=== PATIENT | female | born 1945 | race Hispanic/Latino ===

== ENCOUNTER 2017-12-04 12:19 | Outpatient (CLI) | payer MEDICARE, BC ==
[~2017-12-04 12:19] MED LIST: Iopamidol 370 76% 100 ML VIAL ONE
[2017-12-04 13:03] LABS: Estimated GFR-MDRD - POC Greater than 90
== END 2017-12-04 12:20 | disposition home or self-care (01) ==
LOC: BICCT 12:19
PROVIDERS: ATTEND Internal Medicine Cardiovascular Disease
DX: D49.6 Neoplasm of unspecified behavior of brain (principal); R06.02 Shortness of breath; R55 Syncope and collapse; I65.29 Occlusion and stenosis of unspecified carotid artery
CPT/HCPCS: 70470; 82565

== ENCOUNTER 2018-06-15 14:36 | Outpatient (CLI) | payer MEDICARE, BC ==
[2018-06-15 16:03] LABS: #Basophils 0.1 thou/uL (0.0-0.2); #Eosinphils 0.2 thou/uL (0.0-0.7); #Lymphocytes 2.6 thou/uL (1.20-3.40); #Monocytes 0.8 thou/uL (0.11-0.59); #Neutrophils 4.5 thou/uL (1.40-6.50); %Basophils 0.7 % (0.0-1.0); %Eosinophils 2.3 % (0.0-10.0); %Lymphocytes 31.5 % (21.0-51.0); %Monocytes 9.9 % (0.0-10.0); %Neutrophils 55.6 % (42.0-75.0); Hemoglobin 10.8 g/dL (12.0-16.0); Mean Corpuscular HGB CONC 32.8 g/dL (32.0-36.0); Mean Corpuscular Volume 91.5 fL (78.0-98.0); Mean Platelet Volume 7.1 fL (7.4-10.4); Platelet Count 267 thou/uL (130-400); Red Blood Cell (RBC) Count 3.61 mill/uL (4.20-5.40); White Blood Cell (WBC) Count 8.2 thou/uL (4.8-10.8)
[2018-06-15 16:19] LABS: PTT 28.4 SEC (22.9-36.1); Prothrombin Time 13.6 SEC (12.0-14.7)
[2018-06-15 16:27] LABS: ALT (SGPT) 15 U/L (8-55); AST (SGOT) 17 U/L (5-34); Albumin 4.1 g/dL (3.4-4.8); Alkaline Phosphatase 132 U/L (40-150); Anion Gap 13 mmol/L (10-20); BUN (Urea Nitrogen) 18 mg/dL (9.8-20.1); Bilirubin, Total 0.3 mg/dL (0.2-1.2); Calc. Creatinine Clearance 0 mL/min (70-130); Calcium 9.8 mg/dL (7.8-10.44); Carbon Dioxide 27 mmol/L (23-31); Chloride 102 mmol/L (98-107); Estimated GFR-MDRD 77; Globulin 2.8 g/dL (2.4-3.5); Glucose 265 mg/dL (83-110); Potassium 4.6 mmol/L (3.5-5.1); Protein, Total 6.9 g/dL (6.0-8.3); Sodium 137 mmol/L (136-145)
== END 2018-06-15 14:37 | disposition home or self-care (01) ==
LOC: LABBT 14:36
PROVIDERS: ATTEND Internal Medicine Cardiovascular Disease
DX: Z01.812 Encounter for preprocedural laboratory examination (principal); R94.39 Abnormal result of other cardiovascular function study
CPT/HCPCS: 80053; 85025; 85610; 85730

== ENCOUNTER 2018-06-21 06:41 | Day surgery (SDC) | payer MEDICARE, BC ==
[2018-06-15 15:13] VITALS: BMI 30.2
[2018-06-21 09:36] LABS: Cardiac Risk 3.2 (Less than 4.5)
[2018-06-21] MEDS ORDERED: Midazolam HCl 2 mg/2 ml Vial ONE (10:23)
[2018-06-21] MEDS ORDERED: Fentanyl 100 MCG/2 ML VIAL ONE (10:23)
--- NOTE | 2018-06-21 16:42 | CON ---
DATE OF CONSULTATION: 06/21/2018 REASON FOR CONSULTATION: Evaluate the patient for coronary artery bypass grafting. HISTORY OF PRESENT ILLNESS: Ms. Lopez is a very pleasant 73-year-old woman, who approximately 9 months ago had positive stress test performed. This was performed for progressive chest pain and shortness of breath. She was advised at that time to have cardiac catheterization. She refused and has been having progressive chest pain at home. She was seen in the [facility] Emergency Department, had an echocardiogram performed, which was "normal" and told she needed to have a cardiac catheterization. At that juncture, she called Dr. Faust, to schedule her cardiac catheterization. Catheterization shows severely calcified coronary arteries throughout. She has subtotal LAD stenosis. She has a subtotal diagonal #2 stenosis. She has a 99% OM stenosis. Her right coronary does not have significant bypassable disease. Ejection fraction is 40%. I have been asked to see her to discuss coronary artery bypass grafting. PAST MEDICAL HISTORY: 1. Hypertension. 2. Dyslipidemia. 3. Tobacco abuse - stopped. 4. Diabetes mellitus. PAST SURGICAL HISTORY: 1. Hysterectomy. 2. Cataract extraction. 3. Cholecystectomy. ALLERGIES: NONE. SOCIAL HISTORY: As above. PHYSICAL EXAMINATION: GENERAL: This is a well-developed, well-nourished woman, resting comfortably in the recovery area. VITAL SIGNS: Her heart rate is 67 and regular, blood pressure 130/50. HEENT: Sclerae nonicteric. Pupils are equal and round bilaterally. NECK: Supple without bruit. CHEST: Clear bilaterally. HEART: Rhythm is regular. ABDOMEN: Soft and nontender. EXTREMITIES: No cyanosis, clubbing, or edema. She has no venous varicosities. VASCULAR: She has palpable carotid, radial, femoral pulses bilaterally. Dorsalis pedis and posterior tibial pulses are palpable bilaterally. ASSESSMENT AND PLAN: This is a pleasant 73-year-old woman with severe 3-vessel coronary artery disease, bypassable targets included LAD, D2, and OM. Risks, benefits, and options of coronary artery bypass graft had been discussed with the patient and family. 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 She is agreeable to proceed and will call the office to schedule. Job ID: [id number]
== END 2018-06-21 14:20 | disposition home or self-care (01) ==
LOC: CCL 06:41
PROVIDERS: ATTEND Internal Medicine Cardiovascular Disease
PROC: B211YZZ Fluoroscopy of Multiple Coronary Arteries using Other Contrast (ICD-10-PCS; principal; 2018-06-21)
DX: Z01.810 Encounter for preprocedural cardiovascular examination (principal); I25.10 Atherosclerotic heart disease of native coronary artery without angina pectoris; I10 Essential (primary) hypertension; Z87.891 Personal history of nicotine dependence; E11.9 Type 2 diabetes mellitus without complications; Z90.49 Acquired absence of other specified parts of digestive tract; Z90.710 Acquired absence of both cervix and uterus; E78.00 Pure hypercholesterolemia, unspecified; Z79.899 Other long term (current) drug therapy; Z79.84 Long term (current) use of oral hypoglycemic drugs; Z79.82 Long term (current) use of aspirin
CPT/HCPCS: 36415; 80061; 93458; 93567; 99152; 99153; C1769; J1644; J2250; J3010

== ENCOUNTER 2018-07-03 06:48 | Outpatient (CLI) | payer MEDICARE, BC ==
[2018-07-03 14:58] LABS: Mean Corpuscular HGB CONC 32.7 g/dL (32.0-36.0); Mean Corpuscular Volume 91.9 fL (78.0-98.0); Mean Platelet Volume 7.2 fL (7.4-10.4); Platelet Count 252 thou/uL (130-400); RBC Distribution Width 12.8 % (11.5-14.5); Red Blood Cell (RBC) Count 3.67 mill/uL (4.20-5.40); White Blood Cell (WBC) Count 8.2 thou/uL (4.8-10.8)
[2018-07-03 15:12] LABS: Anion Gap 13 mmol/L (10-20); BUN (Urea Nitrogen) 12 mg/dL (9.8-20.1); Calc. Creatinine Clearance 0 mL/min (70-130); Calcium 9.8 mg/dL (7.8-10.44); Carbon Dioxide 29 mmol/L (23-31); Chloride 101 mmol/L (98-107); Estimated GFR-MDRD 89; Glucose 275 mg/dL (83-110); Potassium 4.1 mmol/L (3.5-5.1); Sodium 139 mmol/L (136-145)
--- NOTE | 2018-07-03 16:23 | EKG ---
Test Reason : Blood Pressure : / mmHG Vent. Rate : 061 BPM Atrial Rate : 061 BPM P-R Int : 154 ms QRS Dur : 156 ms QT Int : 436 ms P-R-T Axes : 009 -50 065 degrees QTc Int : 438 ms Normal sinus rhythm Left axis deviation Right bundle branch block Left ventricular hypertrophy with QRS widening and repolarization abnormality Abnormal ECG When compared with ECG of 20-SEP-2012 21:39, No significant change was found Confirmed by DR. Vik PERAZA ([id number]) on 07/03/2018 4:22:45 PM Referred By: SIMI Confirmed By:DR. Vik PERAZA
--- NOTE | 2018-07-11 04:29 | DIS ---
DATE OF ADMISSION: 07/03/2018 DATE OF DISCHARGE: 07/03/2018 DIAGNOSES: 1. Coronary artery disease. 2. Diabetes mellitus. 3. Hypertension. 4. Dyslipidemia. PROCEDURES: 1. Coronary artery bypass grafting x3. a. Left internal mammary artery to LAD. b. Reverse saphenous vein to diagonal. c. Reverse saphenous vein to OM. DISCHARGE MEDICATIONS: 1. Aspirin 325 mg daily. 2. Atenolol 25 mg daily. 3. Lisinopril 20 mg daily. 4. Atorvastatin 20 mg at bedtime. 5. Gabapentin 100 mg t.i.d. 6. Glipizide/metformin 5/50 two tablets b.i.d. 7. Lasix 20 mg daily. DESCRIPTION OF HOSPITAL STAY: Ms. Lopez underwent an elective coronary artery bypass grafting. She has done well postoperatively. She is being discharged home today without complication. She had no rhythm disturbances in hospital. Followup is with me in 2 weeks. Job ID: [id number]
== END 2018-07-03 06:49 | disposition home or self-care (01) ==
LOC: LABBT 06:48
PROVIDERS: ATTEND Thoracic Surgery (Cardiothoracic Vascular Surgery)
DX: Z01.818 Encounter for other preprocedural examination (principal)
CPT/HCPCS: 80048; 85027; 86850; 86900; 86901; 93005; 93010

== ENCOUNTER 2018-07-03 13:00 | Inpatient (IN) | payer MEDICARE, BC ==
[2018-07-04] MEDS ORDERED: CEFAZOLIN 2 GM/50 ML BAG ONE (06:21)
[2018-07-04] MEDS ORDERED: Albumin 5% 500 ML ONE (06:27)
[2018-07-04] MEDS ORDERED: Dexmedetomidine 200 MCG/2 ML VIAL ONE (06:41)
[2018-07-04] MEDS ORDERED: Midazolam HCl 5 mg/5 ml Vial ONE (06:41)
[2018-07-04] MEDS ORDERED: Vecuronium 10 MG VIAL ONE ×2 (06:41→15:08)
[2018-07-04] MEDS ORDERED: Fentanyl 250 MCG/5 ML VIAL ONE (06:41)
[2018-07-04] MEDS ORDERED: Phenylephrine HCL 10 MG/ML VIAL ONE (07:00)
[2018-07-04] MEDS ORDERED: Norepinephrine 4 MG/4 ML VIAL ONE (07:00)
[2018-07-04] MEDS ORDERED: Heparin 10,000 UNITS/1 ML VIAL 30,000 UNITS in Sodium Chloride 0.9% 1,000 ML FS SCH (07:00)
[2018-07-04] MEDS ORDERED: Sodium Chloride 0.9% 10 ML ONE (07:02)
[2018-07-04] MEDS ORDERED: Insulin Regular 300 UNITS/3 ML VIAL ONE (08:14)
[2018-07-04] MEDS ORDERED: Dexamethasone 4 mg/ml Vial ONE (08:55)
[2018-07-04] MEDS ORDERED: Bupivacaine HCl 0.5%/Epinephrine 1:200,000/PF 30 ml Vial ONE (08:55)
[2018-07-04] MEDS ORDERED: hydrALAZINE 20 MG/ML VIAL SLOW IVP PRN (11:06)
[2018-07-04] MEDS ORDERED: Post-Op Insulin Drip Protocol IVPB ONE (11:06)
[2018-07-04] MEDS ORDERED: MAGNESIUM IVPB SCH (11:06)
[2018-07-04] MEDS ORDERED: NS IVPB SCH (11:06)
[2018-07-04] MEDS ORDERED: Acetaminophen 325 MG TAB PO PRN (11:06)
[2018-07-04] MEDS ORDERED: Bisacodyl 5 MG TAB PO PRN (11:06)
[2018-07-04] MEDS ORDERED: Morphine 4 MG/ML VIAL SLOW IVP PRN (11:06)
[2018-07-04] MEDS ORDERED: D5 1/2 NS w/20 mEq KCL 1,000 ML IV SCH (11:06)
[2018-07-04] MEDS ORDERED: Nitroglycerin 50 MG/250 ML BOT 250 ML IVPB PRN (11:06)
[2018-07-04] MEDS ORDERED: Fentanyl 100 MCG/2 ML VIAL SLOW IVP PRN ×2 (11:06)
[2018-07-04] MEDS ORDERED: Promethazine HCl 25 MG/ML VIAL IM PRN (11:06)
[2018-07-04] MEDS ORDERED: Hetastarch 6% 500 ML 500 ML IVPB PRN (11:06)
[2018-07-04] MEDS ORDERED: Guaifenesin DM 100-10/5 ML UDCUP PO PRN (11:06)
[2018-07-04] MEDS ORDERED: Bisacodyl 10 MG SUPP PR PRN (11:06)
[2018-07-04] MEDS ORDERED: Norepinephrine 8 MG/0.9% NS 250 ML IVPB PRN (11:06)
[2018-07-04] MEDS ORDERED: Mag-Al 1200 mg/1200 mg/30 ML UDCUP PO PRN (11:06)
[2018-07-04] MEDS ORDERED: Ondansetron PF 4 MG/2 ML Vial IVP PRN (11:06)
[2018-07-04] MEDS ORDERED: CEFAZOLIN/Water 2 GM/20 ML SYRINGE SLOW IVP SCH (11:06)
[2018-07-04] MEDS ORDERED: Dextrose 50% Abboject 50 ML SYRINGE SLOW IVP PRN (11:47)
[2018-07-04] MEDS ORDERED: Dextrose 5% in Water 1,000 ML IV PRN (11:47)
[2018-07-04] MEDS ORDERED: HUMULIN R 100 UNITS in Sodium Chloride 0.9% 100 ML IVPB SCH (11:47)
[2018-07-04 11:50] LABS: Actual Bicarbonate (HCO3a) 23.2 mEq/L (22-28); CO2 Tension 32.3 mmHg (35.0-45.0); Calcium, Ionized 1.22 mmol/L (1.12-1.30); O2 Tension (PaO2) 86.2 mmHg (> 70.0); Potassium - ABG Lab 3.84 mmol/L (3.70-5.30); pH, Arterial 7.48 (7.35-7.45)
[2018-07-04 11:51] LABS: ALV-art Gradient 229.925 (0-20); Puncture Site ALINE
[2018-07-04 11:53] LABS: INR-International Normal Ratio 1.2; Prothrombin Time 15.5 SEC (12.0-14.7)
[2018-07-04 11:54] LABS: #Eosinphils 0.1 thou/uL (0.0-0.7); #Lymphocytes 2.3 thou/uL (1.20-3.40); #Monocytes 0.8 thou/uL (0.11-0.59); #Neutrophils 8.2 thou/uL (1.40-6.50); %Basophils 0.1 % (0.0-1.0); %Lymphocytes 20.1 % (21.0-51.0); %Monocytes 6.6 % (0.0-10.0); %Neutrophils 72.2 % (42.0-75.0); Hemoglobin 8.7 g/dL (12.0-16.0); Mean Corpuscular HGB CONC 33.4 g/dL (32.0-36.0); Mean Corpuscular Hemoglobin 30.5 pg (27.0-31.0); Mean Corpuscular Volume 91.3 fL (78.0-98.0); Mean Platelet Volume 7.3 fL (7.4-10.4); PTT 43.5 SEC (22.9-36.1); Platelet Count 176 thou/uL (130-400); RBC Distribution Width 12.4 % (11.5-14.5); Red Blood Cell (RBC) Count 2.83 mill/uL (4.20-5.40); White Blood Cell (WBC) Count 11.4 thou/uL (4.8-10.8)
[2018-07-04] MEDS: Ketorolac Tromethamine 30 MG/ML VIAL IVP SCH ×3 (12:04→23:10)
[2018-07-04 12:05] LABS: Anion Gap 11 mmol/L (10-20); BUN (Urea Nitrogen) 11 mg/dL (9.8-20.1); Calc. Creatinine Clearance 100 mL/min (70-130); Calcium 9.1 mg/dL (7.8-10.44); Carbon Dioxide 22 mmol/L (23-31); Chloride 111 mmol/L (98-107); Estimated GFR-MDRD Greater than 90; Glucose 190 mg/dL (83-110); Sodium 140 mmol/L (136-145)
[2018-07-04] MEDS: Potassium Chloride 20 MEQ/100 ML PREMIX BAG IVPB PRN (12:40)
[2018-07-04] MEDS: CEFAZOLIN 2 GM/50 ML-DEXTROSE 2 GM in Premix Bag 1 BAG IVPB SCH ×2 (13:17→21:17)
--- NOTE | 2018-07-04 13:39 | RAD ---
SINGLE VIEW OF THE CHEST: Date: 07-04-18 Comparison: 09-20-12 History: Status post open heart surgery. FINDINGS: Single view of the chest shows an enlarged cardiomediastinal silhouette. The patient is status post s ternotomy. There is an endotracheal tube with its tip at the lower border of the clavicles. A right s ubclavian central venous catheter is seen with its tip at the superior vena cava. Mediastinal drains are seen. There is no evidence of consolidation, mass, or pleural effusion. IMPRESSION: Appropriate position of lines and tubes status post sternotomy. POS: NATASHA
[2018-07-04] MEDS ORDERED: Protamine Sulfate 250 MG/25 ML VIAL ONE (15:08)
[2018-07-04] MEDS ORDERED: Papaverine 60 MG/2 ML VIAL ONE (15:08)
[2018-07-04] MEDS ORDERED: Mannitol 12.5 GM/50 ML ONE (15:08)
[2018-07-04] MEDS ORDERED: Thrombin 5000 UNITS/5 ML VIAL ONE (15:08)
[2018-07-04] MEDS ORDERED: Aminocaproic Acid 5 GM/20 ML VIAL ONE (15:08)
[2018-07-04] MEDS ORDERED: Nitroglycerin 50 MG/250 ML BOT ONE (15:08)
[2018-07-04] MEDS ORDERED: Dexamethasone 20 MG/5 ML VIAL ONE (15:08)
[2018-07-04] MEDS ORDERED: Ketorolac Tromethamine 30 MG/ML VIAL ONE (15:08)
[2018-07-04] MEDS ORDERED: PROPOFOL 200 MG/20 ML VIAL ONE (15:08)
[2018-07-04] MEDS ORDERED: Albumin 25% 25 GM/100 ML BOT ONE (15:08)
[2018-07-04] MEDS ORDERED: Ondansetron PF 4 MG/2 ML Vial ONE (15:08)
[2018-07-04] MEDS ORDERED: Cardioplegic Soln 1,000 ML BAG ONE (15:08)
[2018-07-04] MEDS ORDERED: Lidocaine 2% PF 100 mg/5 ml Syringe ONE (15:08)
[2018-07-04] MEDS ORDERED: Magnesium 5 GM/10 ML VIAL ONE (15:08)
[2018-07-04] MEDS ORDERED: Sodium Bicarb 50 MEQ/50 ML Abboject 8.4% SYRINGE ONE (15:08)
[2018-07-04] MEDS ORDERED: Heparin 5,000 UNITS/ML VIAL ONE (15:08)
[2018-07-04] MEDS ORDERED: Heparin 30,000 units/30 ml VIAL ONE (15:08)
[2018-07-04] MEDS ORDERED: Potassium Chloride 60 MEQ/30 ML VIAL ONE (15:08)
[2018-07-04] MEDS ORDERED: Calcium Chloride 1 GM/10 ML Abboject SYRINGE ONE (15:08)
--- NOTE | 2018-07-04 15:08 | CON ---
DATE OF CONSULTATION: 07/04/2018 PRIMARY HAMMERER HELPER: Aleksandar Faust MD REASON FOR CONSULTATION: Post CABG. HISTORY OF PRESENT ILLNESS: Ms. Lopez is a pleasant 73-year-old female, who comes to the hospital for a planned coronary bypass. She has had several attempts at heart catheterization and she would cancel. She was concerned afraid about the procedure, finally ended up having her heart catheterization on the 21 of June that showed severely calcified coronary arteries with subtotal LAD and diagonal and OMs. The right coronary was without significant disease. Her EF was 40% at that time. She had coronary artery bypass grafting done earlier today and did pretty well. She is currently intubated under sedation. Sedation has been off, but she is still not waking up. Currently, her blood pressure is maintaining without any pressor or inotrope support. PAST MEDICAL HISTORY: 1. Hypertension. 2. Hyperlipidemia. 3. Type 2 diabetes. 4. History of tobacco abuse, none for some time now. SURGICAL HISTORY: 1. Hysterectomy. 2. Cataract surgery. 3. Cholecystectomy. 4. CABG. OUTPATIENT MEDICATIONS: Include, 1. Atenolol 25 mg a day. 2. Lisinopril 10 mg a day. 3. Gabapentin 100 mg three times a day. 4. Amlodipine 10 mg a day. 5. Glipizide 5 mg a day. 6. Metformin 500 mg twice a day. 7. Atorvastatin 20 mg at bedtime. 8. Aspirin 81 a day. ALLERGIES: NO KNOWN DRUG ALLERGIES. FAMILY HISTORY: Noncontributory. SOCIAL HISTORY: Former tobacco user. No alcohol or drugs. REVIEW OF SYSTEMS: Unobtainable as she currently sedated and intubated. PHYSICAL EXAMINATION: VITAL SIGNS: Temperature 97.2, pulse 50, respiratory rate 12, saturating 98% on 40% FiO2, and blood pressure 92/50. GENERAL: Sedated, intubated. LUNGS: Have coarse breath sounds. CARDIOVASCULAR: S1 and S2. No S3 or S4. There is a 3 component rub consistent with a recent bypass earlier today and chest tubes. ABDOMEN: Soft. EXTREMITIES: Trace edema in the left leg, which is her harvested leg. Nothing on the right leg. LABORATORY DATA: Laboratory work was reviewed. Postop EKGs were reviewed. ASSESSMENT AND PLAN: 1. Multivessel coronary artery disease, status post coronary artery bypass graft. 2. Hypertension. 3. Hyperlipidemia. 4. Type 2 diabetes. PLAN: 1. Continue supportive care for now. Continue to wean off the ventilator. May need pressors. 2. Continue to watch hemoglobin, she is at 8.7 now. 3. Will need aspirin and statin for life. 4. Eventually once blood pressure allows, we will need reinstitution of her ALEXEI inhibitor and beta blockers. Thank you for letting me to participate in the care of your patient. We will follow. Job ID: [id number]
[2018-07-04] MEDS ORDERED: CEFAZOLIN 2 GM/50 ML-DEXTROSE 2 GM in Premix Bag 1 BAG IVPB SCH (16:00)
--- NOTE | 2018-07-04 17:32 | OP ---
DATE OF PROCEDURE: 07/04/2018 PREOPERATIVE DIAGNOSES: Coronary artery disease/diabetes mellitus/hypertension/hyperlipidemia. POSTOPERATIVE DIAGNOSES: Coronary artery disease/diabetes mellitus/hypertension/hyperlipidemia. PROCEDURES PERFORMED: 1. Coronary artery bypass grafting x3 - one left internal mammary artery to 1.5 mm distal LAD - good conduit, heavily calcified target - this is not a redo target. 2. Reverse saphenous vein to 1.25 mm diagonal - good conduit, heavily calcified target - this is not a redo target. 3. Reverse saphenous vein to 1.25 mm OM - good conduit, heavily calcified target - this is not a redo target. Note, all of her coronaries were heavily calcified. The bypasses were performed to the only soft areas on her coronary arteries, and there was no further coronary bypassable target. CO-SURGEON: Dr. Tonny La. ANESTHESIA: General endotracheal - Dr. Cesar Franco. PUMP TIME: 59 minutes. CROSS-CLAMP TIME: 32 minutes. LOW CORE TEMPERATURE: 34 degrees Celsius. ART COORDINATOR: Kenneth Rojo. DRAINS: A 24-Serbian chest tubes x2. DRIPS: None. TRANSFUSIONS: None. DESCRIPTION OF PROCEDURE: After consent was obtained, the patient was brought to the operating room, placed in supine position on the operating room table. Appropriate central line was placed, and general endotracheal anesthesia was induced. Chest and legs were prepped and draped in usual sterile fashion. Greater saphenous vein was harvested utilizing endoscopic technique from the left thigh. Wounds were again closed in layers. Median sternotomy was performed. Left internal mammary artery was harvested as a pedicle graft. The patient was systemically heparinized. Distal pedicle was divided and infused with papaverine. Thymic fat and pericardium were divided with electrocautery. Pericardial stay sutures were placed. Aortic and atrial cannulation was performed. After adequate heparinization, retrograde prime was performed. The patient was placed on cardiopulmonary bypass. Aortic cross-clamp was applied, and antegrade sanguineous cardioplegic arrest was obtained. 1 L of antegrade cold cardioplegia was given. Topical cold solution was used. Reverse saphenous vein was anastomosed to diagonal in an end-to-side fashion with running 7-0 Prolene suture. Anastomosis was tested and it was hemostatic. Reverse saphenous vein was anastomosed to the OM in an end-to-side fashion with running 7-0 Prolene suture. Anastomosis was tested, and it was hemostatic. Mammary artery pericardium was anastomosed to the LAD in an end-to-side fashion with running 7-0 Prolene suture. Anastomosis was tested and it was hemostatic. On release, mammary claims good occluding anastomosis and good distal flow. Pedicle was secured with interrupted 6-0 Prolene suture. Cross-clamp was removed, and partial occluding clamp was placed. Saphenous vein to the OM was anastomosed to the aortic root. Partial occluding clamp was removed. Saphenous vein to the diagonal was anastomosed to the sidewall of the OM graft. The anastomoses were inspected for hemostasis, which was good. The patient was warmed and weaned from cardiopulmonary bypass. After resumption of sinus rhythm, good hemodynamics, temperature greater than 36.5, bypass was discontinued. Transfusions were given. Protamine was administered. Decannulation was performed, and purse-string suture was secured. Aortic cannulation site was reinforced with 4-0 Prolene suture. After adequate hemostasis had been obtained, vancomycin paste was placed on the sternal edges. A 24-Serbian chest tubes were placed in mediastinum. Sternum was closed with #5 wire. Sternum was treated with platelet rich plasma. Wires were twisted. Peristernal and pericostal areas were injected with 0.5% Marcaine with epinephrine, mixed with 5 mg of Decadron. Wounds were irrigated and treated with platelet poor plasma and closed in multiple layers. Dermabond was applied to the skin. The patient tolerated the procedure well, was transferred to the intensive care unit in stable, but critical condition. Needle, sponge, and instrument counts were all reported as correct at the end of the procedure. Job ID: [id number]
[2018-07-04 18:08] LABS: Hemoglobin 8.3 g/dL (12.0-16.0)
[2018-07-04 18:28] LABS: Potassium 4.2 mmol/L (3.5-5.1)
[2018-07-04] MEDS ORDERED: Famotidine/PF 20 mg/2ml Vial SLOW IVP SCH (21:00)
[2018-07-04] MEDS ORDERED: Prevnar 13-Val Conj/PF 0.5 ML SYRINGE IM ONE (21:00)
[2018-07-05 03:59] LABS: #Lymphocytes 1.4 thou/uL (1.20-3.40); #Monocytes 1.3 thou/uL (0.11-0.59); #Neutrophils 8.1 thou/uL (1.40-6.50); %Basophils 0.2 % (0.0-1.0); %Eosinophils 0.1 % (0.0-10.0); %Lymphocytes 13.2 % (21.0-51.0); %Monocytes 11.9 % (0.0-10.0); %Neutrophils 74.7 % (42.0-75.0); Hemoglobin 7.8 g/dL (12.0-16.0); Mean Corpuscular HGB CONC 32.8 g/dL (32.0-36.0); Mean Corpuscular Hemoglobin 30.1 pg (27.0-31.0); Mean Corpuscular Volume 91.8 fL (78.0-98.0); Mean Platelet Volume 7.5 fL (7.4-10.4); Platelet Count 166 thou/uL (130-400); RBC Distribution Width 12.9 % (11.5-14.5); Red Blood Cell (RBC) Count 2.57 mill/uL (4.20-5.40); White Blood Cell (WBC) Count 10.8 thou/uL (4.8-10.8)
[2018-07-05 04:09] LABS: Anion Gap 12 mmol/L (10-20); BUN (Urea Nitrogen) 19 mg/dL (9.8-20.1); Calc. Creatinine Clearance 90 mL/min (70-130); Calcium 9.1 mg/dL (7.8-10.44); Carbon Dioxide 22 mmol/L (23-31); Chloride 112 mmol/L (98-107); Estimated GFR-MDRD Greater than 90; Glucose 123 mg/dL (83-110); Potassium 4.1 mmol/L (3.5-5.1); Sodium 142 mmol/L (136-145)
[2018-07-05] MEDS: Ketorolac Tromethamine 30 MG/ML VIAL IVP SCH ×3 (05:16→17:45)
[2018-07-05] MEDS: CEFAZOLIN 2 GM/50 ML-DEXTROSE 2 GM in Premix Bag 1 BAG IVPB SCH (05:16)
[2018-07-05] MEDS: HYDROcodone/Acetaminophen 5/325 mg Tablet PO PRN ×2 (06:15→09:23)
[2018-07-05] MEDS: Aspirin 325 MG TAB PO SCH (08:00)
[2018-07-05] MEDS: Famotidine 20 MG TAB PO SCH ×2 (08:00→20:39)
[2018-07-05] MEDS: Gabapentin 100 MG CAP PO SCH ×3 (08:01→20:39)
--- NOTE | 2018-07-05 08:28 | RAD ---
SUPINE PORTABLE CHEST: INDICATION: Postop sternotomy. COMPARISON: 07/04/2018. FINDINGS: Left basilar atelectasis and/or infiltrate. Cardiomegaly. Mild vascular engorgement. Central line is unchanged. ET tube has been removed. POS: JOSE DANIEL
[2018-07-05] MEDS ORDERED: NS IVPB SCH (09:00)
[2018-07-05] MEDS ORDERED: MAGNESIUM IVPB SCH (09:00)
--- NOTE | 2018-07-05 11:35 | PDOC.CTH ---
Cardiology Progress Note - Subjective She is doing well. She is now extubated. - Objective Vital Signs Temp Pulse Ox 07/05/18 07:47 95 07/05/18 07:44 96 07/05/18 07:00 99.2 F 07/05/18 05:00 99.1 F 07/05/18 03:00 98.7 F 07/05/18 00:00 97 Admit Weight 2.564 oz Weight 155 lb 3.287 oz 07/04/18 07/05/18 07/06/18 06:59 06:59 06:59 Intake Total 1486 160 Output Total 935 300 Balance 551 -140 - Physical Examination General/Neuro: alert & oriented x3, NAD Neck: no JVD present Lungs: unlabored respirations Heart: RRR Abdomen: NT/ND Extremities: + edema B (Trace) - Telemetry Telemetry Rhythm: NSR - Labs Result Diagrams: 07/05/18 03:46 07/05/18 03:46 - Assessment/Plan 1. Severe multivessel CAD. 2. S/P CABG 3. HTN 4. HLP 5. T2 DM 6. Anemia PLAN: - PT as tolerated. - Will restart Statin, continue aspirin - BB and ACEI/ARB once BP allows.
[2018-07-05] MEDS: Insulin Regular 300 UNITS/3 ML VIAL SC PRN (16:35)
[2018-07-05] MEDS: Atorvastatin Calcium 20 MG TAB PO SCH (20:39)
[2018-07-06] MEDS: Ketorolac Tromethamine 30 MG/ML VIAL IVP SCH ×5 (00:18→23:17)
[2018-07-06] MEDS: Insulin Regular 300 UNITS/3 ML VIAL SC PRN ×4 (00:20→22:10)
[2018-07-06 05:30] LABS: #Eosinphils 0.1 thou/uL (0.0-0.7); #Lymphocytes 2.1 thou/uL (1.20-3.40); #Neutrophils 4.4 thou/uL (1.40-6.50); %Basophils 0.2 % (0.0-1.0); %Eosinophils 1.4 % (0.0-10.0); %Lymphocytes 27.3 % (21.0-51.0); %Monocytes 13.6 % (0.0-10.0); %Neutrophils 57.5 % (42.0-75.0); Hemoglobin 8.7 g/dL (12.0-16.0); Mean Corpuscular HGB CONC 32.9 g/dL (32.0-36.0); Mean Corpuscular Hemoglobin 30.4 pg (27.0-31.0); Mean Corpuscular Volume 92.2 fL (78.0-98.0); Mean Platelet Volume 7.3 fL (7.4-10.4); Platelet Count 149 thou/uL (130-400); RBC Distribution Width 13.1 % (11.5-14.5); Red Blood Cell (RBC) Count 2.86 mill/uL (4.20-5.40); White Blood Cell (WBC) Count 7.6 thou/uL (4.8-10.8)
[2018-07-06 06:05] LABS: Anion Gap 9 mmol/L (10-20); BUN (Urea Nitrogen) 18 mg/dL (9.8-20.1); Calc. Creatinine Clearance 98 mL/min (70-130); Carbon Dioxide 29 mmol/L (23-31); Chloride 109 mmol/L (98-107); Estimated GFR-MDRD Greater than 90; Glucose 115 mg/dL (83-110); Sodium 143 mmol/L (136-145)
[2018-07-06] MEDS: Potassium Chloride 20 MEQ/100 ML PREMIX BAG IVPB PRN (06:51)
[2018-07-06] MEDS ORDERED: Nitroglycerin 0.4 MG TAB (25 Tab Bottle) SL PRN (07:24)
[2018-07-06] MEDS ORDERED: Zolpidem Tartrate 5 MG TAB PO PRN (07:24)
[2018-07-06] MEDS ORDERED: diphenhydrAMINE 25 MG CAP PO PRN (07:24)
[2018-07-06] MEDS ORDERED: Mag-Al 1200 mg/1200 mg/30 ML UDCUP PO PRN (07:24)
[2018-07-06] MEDS ORDERED: Guaifenesin DM 100-10/5 ML UDCUP PO PRN (07:24)
[2018-07-06] MEDS ORDERED: Artificial Tears 18 DROP/0.9 ML EA EYE PRN (07:24)
[2018-07-06] MEDS ORDERED: Mineral Oil ENEMA PR PRN (07:24)
[2018-07-06] MEDS: HYDROcodone/Acetaminophen 5/325 mg Tablet PO PRN ×2 (07:35→22:05)
--- NOTE | 2018-07-06 08:22 | PDOC.CTH ---
Cardiology Progress Note - Subjective She is doing well. Passing gas. Pain well controlled. - Objective Vital Signs Temp Resp Pulse Ox 07/06/18 08:00 13 95 07/06/18 07:24 95 07/06/18 07:12 94 L 07/06/18 04:00 98.1 F 07/06/18 00:00 99.0 F Admit Weight 2.564 oz Weight 158 lb 1.143 oz 07/05/18 07/06/18 07/07/18 06:59 06:59 06:59 Intake Total 1486 1180 160 Output Total 935 1065 70 Balance 551 115 90 - Physical Examination General/Neuro: alert & oriented x3, NAD Neck: no JVD present Lungs: CTA, unlabored respirations Heart: RRR Abdomen: NT/ND Extremities: + edema B (trace) - Telemetry Telemetry Rhythm: NSR - Labs Result Diagrams: 07/06/18 05:22 07/06/18 05:22 - Assessment/Plan 1. Severe multivessel CAD. 2. S/P CABG 3. HTN 4. HLP 5. T2 DM 6. Anemia PLAN: - Increase PT as tolerated. - Continue aspirin/Statin. - BB on board. ACEI tomorrow if BP holds.
[2018-07-06] MEDS: Atenolol 25 MG TAB PO SCH (08:32)
[2018-07-06] MEDS: Potassium Chloride 10 MEQ TAB PO SCH (08:32)
[2018-07-06] MEDS: Famotidine 20 MG TAB PO SCH ×2 (08:32→21:59)
[2018-07-06] MEDS: Furosemide 20 MG TAB PO SCH (08:33)
[2018-07-06] MEDS: Aspirin 325 MG TAB PO SCH (08:33)
[2018-07-06] MEDS: Gabapentin 100 MG CAP PO SCH ×3 (08:33→22:00)
[2018-07-06] MEDS ORDERED: Atenolol 25 MG TAB PO SCH (09:00)
--- NOTE | 2018-07-06 09:31 | RAD ---
PORTABLE SEMI UPRIGHT FRONTAL CHEST RADIOGRAPH: Date: 07-06-18 Comparison: 07-05-18 History: Evaluate chest following open heart surgery. FINDINGS: Calcification of the aortic arch. There is a stable right sided vascular catheter. There is dense ple ural and parenchymal opacity in the left base suggesting a combination of left lower lobe consolidati on/collapse and left pleural fluid. Right lung is grossly unremarkable. IMPRESSION: Stable appearance of the chest as detailed above. POS: JOSE DANIEL
[2018-07-06] MEDS: Atorvastatin Calcium 20 MG TAB PO SCH (21:59)
[2018-07-07 04:38] VITALS: BMI 32.3
[2018-07-07] MEDS: Insulin Regular 300 UNITS/3 ML VIAL SC PRN ×4 (06:26→21:02)
[2018-07-07] MEDS: Ketorolac Tromethamine 30 MG/ML VIAL IVP SCH ×2 (06:28→11:04)
[2018-07-07] MEDS: Aspirin 325 MG TAB PO SCH (08:18)
[2018-07-07] MEDS: Gabapentin 100 MG CAP PO SCH ×3 (08:18→20:59)
[2018-07-07] MEDS: Furosemide 20 MG TAB PO SCH (08:18)
[2018-07-07] MEDS: Famotidine 20 MG TAB PO SCH ×2 (08:18→20:59)
[2018-07-07] MEDS: Atenolol 25 MG TAB PO SCH (08:18)
[2018-07-07] MEDS: Potassium Chloride 10 MEQ TAB PO SCH (08:18)
[2018-07-07] MEDS: Bisacodyl 5 MG TAB PO PRN (14:10)
[2018-07-07] MEDS: HYDROcodone/Acetaminophen 5/325 mg Tablet PO PRN (20:50)
[2018-07-07] MEDS: Atorvastatin Calcium 20 MG TAB PO SCH (20:59)
[2018-07-08] MEDS: HYDROcodone/Acetaminophen 5/325 mg Tablet PO PRN ×4 (01:11→21:13)
[2018-07-08] MEDS: Potassium Chloride 10 MEQ TAB PO SCH (09:10)
[2018-07-08] MEDS: metFORMIN 500 MG TAB PO SCH ×2 (09:10→17:12)
[2018-07-08] MEDS: Aspirin 325 MG TAB PO SCH (09:11)
[2018-07-08] MEDS: Famotidine 20 MG TAB PO SCH ×2 (09:11→21:07)
[2018-07-08] MEDS: Atenolol 25 MG TAB PO SCH (09:11)
[2018-07-08] MEDS: Bisacodyl 5 MG TAB PO PRN (09:12)
[2018-07-08] MEDS: Furosemide 20 MG TAB PO SCH (09:12)
[2018-07-08] MEDS: Bisacodyl 10 MG SUPP PR PRN (09:12)
[2018-07-08] MEDS: Gabapentin 100 MG CAP PO SCH ×3 (09:12→21:07)
[2018-07-08] MEDS: Insulin Regular 300 UNITS/3 ML VIAL SC PRN ×2 (13:07→17:08)
[2018-07-08] MEDS: Atorvastatin Calcium 20 MG TAB PO SCH (21:07)
[2018-07-09] MEDS: HYDROcodone/Acetaminophen 5/325 mg Tablet PO PRN ×6 (02:20→22:55)
[2018-07-09] MEDS: Potassium Chloride 10 MEQ TAB PO SCH (08:49)
[2018-07-09] MEDS: Aspirin 325 MG TAB PO SCH (08:50)
[2018-07-09] MEDS: Atenolol 25 MG TAB PO SCH (08:50)
[2018-07-09] MEDS: metFORMIN 500 MG TAB PO SCH ×2 (08:50→18:05)
[2018-07-09] MEDS: Famotidine 20 MG TAB PO SCH ×2 (08:50→20:59)
[2018-07-09] MEDS: glipiZIDE 5 MG TAB PO SCH ×2 (08:50→18:05)
[2018-07-09] MEDS: Furosemide 20 MG TAB PO SCH (08:51)
[2018-07-09] MEDS: Gabapentin 100 MG CAP PO SCH ×3 (08:51→20:59)
[2018-07-09] MEDS ORDERED: Amlodipine 10 MG TAB PO SCH (09:00)
[2018-07-09] MEDS: Insulin Regular 300 UNITS/3 ML VIAL SC PRN (12:23)
[2018-07-09 13:49] LABS: Actual Bicarbonate (HCO3a) 27.1 mEq/L (22-28); Analyzer IN Cardio OR; Base Excess (BEa) 4.1 mEq/L (-2.0 to +3.0); CO2 Tension 34.9 mmHg (35.0-45.0); Calcium, Ionized 1.12 mmol/L (1.12-1.30); Carboxyhemoglobin (COHb) 0.5 gm% (0.0-3.0); Hemoglobin (Hb) 10.6 g/dL (12.0-16.0); O2 Tension (PaO2) 398.1 mmHg (> 70.0); Potassium - ABG Lab 3.63 mmol/L (3.70-5.30); pH, Arterial 7.51 (7.35-7.45)
[2018-07-09 13:50] LABS: Actual Bicarbonate (HCO3a) 30.6 mEq/L (22-28); Analyzer IN Cardio OR; Base Excess (BEa) 3.7 mEq/L (-2.0 to +3.0); Calcium, Ionized 1.87 mmol/L (1.12-1.30); Carboxyhemoglobin (COHb) 0.8 gm% (0.0-3.0); Hemoglobin (Hb) 7.4 g/dL (12.0-16.0); O2 Tension (PaO2) 461.1 mmHg (> 70.0); Potassium - ABG Lab 4.56 mmol/L (3.70-5.30); pH, Arterial 7.31 (7.35-7.45)
[2018-07-09 13:50] LABS: Actual Bicarbonate (HCO3a) 32.1 mEq/L (22-28); Analyzer IN Cardio OR; Base Excess (BEa) 5.3 mEq/L (-2.0 to +3.0); Calcium, Ionized 1.06 mmol/L (1.12-1.30); Hemoglobin (Hb) 7.1 g/dL (12.0-16.0); Potassium - ABG Lab 4.04 mmol/L (3.70-5.30); pH, Arterial 7.32 (7.35-7.45)
[2018-07-09 13:50] LABS: Actual Bicarbonate (HCO3a) 25.6 mEq/L (22-28); Analyzer IN Cardio OR; Base Excess (BEa) 1.9 mEq/L (-2.0 to +3.0); CO2 Tension 36.3 mmHg (35.0-45.0); Calcium, Ionized 1.12 mmol/L (1.12-1.30); Carboxyhemoglobin (COHb) 0.4 gm% (0.0-3.0); Hemoglobin (Hb) 9.9 g/dL (12.0-16.0); O2 Tension (PaO2) 316.4 mmHg (> 70.0); Potassium - ABG Lab 3.74 mmol/L (3.70-5.30); pH, Arterial 7.47 (7.35-7.45)
[2018-07-09 13:51] LABS: Actual Bicarbonate (HCO3a) 28.9 mEq/L (22-28); Analyzer IN Cardio OR; Calcium, Ionized 1.45 mmol/L (1.12-1.30); Carboxyhemoglobin (COHb) 1.4 gm% (0.0-3.0); Hemoglobin (Hb) 6.4 g/dL (12.0-16.0); O2 Tension (PaO2) 272.7 mmHg (> 70.0); Potassium - ABG Lab 4.59 mmol/L (3.70-5.30); pH, Arterial 7.35 (7.35-7.45)
[2018-07-09 14:45] LABS: Puncture Site ALINE
[2018-07-09 14:46] LABS: Puncture Site ALINE
[2018-07-09 14:46] LABS: CO2 Tension 64.2 mmHg (35.0-45.0)
[2018-07-09 14:47] LABS: O2 Tension (PaO2) 590.7 mmHg (> 70.0); Puncture Site ALINE
[2018-07-09 14:48] LABS: Puncture Site ALINE
[2018-07-09 14:48] LABS: CO2 Tension 62.4 mmHg (35.0-45.0); Puncture Site ALINE
--- NOTE | 2018-07-09 17:47 | PDOC.CTH ---
Cardiology Progress Note - Subjective No new issues, she is walking with PT without issues. She had a BM yesterday after a suppository and again this morning. Difficult time with oxygen saturation accuracy. - Objective Vital Signs Temp Pulse Pulse Pulse Resp BP BP 07/09/18 16:00 97.2 F L 68 17 07/09/18 12:46 77 74 149/65 H 141/65 H 07/09/18 12:00 98.0 F 92 17 07/09/18 08:51 82 07/09/18 08:50 82 07/09/18 08:00 07/09/18 07:59 98.2 F 82 18 BP Pulse Ox Pulse Ox 07/09/18 16:00 120/58 L 98 07/09/18 12:46 92 L 07/09/18 12:00 124/62 95 07/09/18 08:51 07/09/18 08:50 07/09/18 08:00 94 L 07/09/18 07:59 121/57 L 94 L Admit Weight 2.564 oz Weight 141 lb 6 oz 07/08/18 07/09/18 07/10/18 06:59 06:59 06:59 Intake Total 1710 1567 Output Total 2650 880 Balance -940 687 - Physical Examination General/Neuro: alert & oriented x3, NAD Neck: no JVD present Lungs: CTA, unlabored respirations Heart: RRR Abdomen: NT/ND Extremities: + edema B (trace) - Telemetry Telemetry Rhythm: NSR - Labs Result Diagrams: 07/06/18 05:22 07/06/18 05:22 - Assessment/Plan 1. Severe multivessel CAD. 2. S/P CABG 3. HTN 4. HLP 5. T2 DM 6. Anemia PLAN: - Increase PT as tolerated. - Continue aspirin/Statin. - Continue BB - Will stop amlodipine and start lisinopril at 5 mg daily. - Will get ABG to make sure gas exchange is adequate. - Likely small amount of fluid on left base with atelectasy.
[2018-07-09 18:37] LABS: Actual Bicarbonate (HCO3a) 33.1 mEq/L (22-28); CO2 Tension 55.1 mmHg (35.0-45.0); Calcium, Ionized 1.17 mmol/L (1.12-1.30); Carboxyhemoglobin (COHb) 1.2 gm% (0.0-3.0); Hemoglobin (Hb) 10.2 g/dL (12.0-16.0); Potassium - ABG Lab 4.16 mmol/L (3.70-5.30)
[2018-07-09 18:38] LABS: O2 Tension (PaO2) 48.5 mmHg (> 70.0)
[2018-07-09 18:39] LABS: ALV-art Gradient 32.355 (0-20); Puncture Site LBA
[2018-07-09] MEDS: Atorvastatin Calcium 20 MG TAB PO SCH (20:59)
[2018-07-10] MEDS: glipiZIDE 5 MG TAB PO SCH ×2 (07:37→15:39)
[2018-07-10] MEDS: HYDROcodone/Acetaminophen 5/325 mg Tablet PO PRN ×4 (07:38→22:49)
[2018-07-10] MEDS: Potassium Chloride 10 MEQ TAB PO SCH (09:23)
[2018-07-10] MEDS: Famotidine 20 MG TAB PO SCH ×2 (09:24→22:45)
[2018-07-10] MEDS: metFORMIN 500 MG TAB PO SCH ×2 (09:24→17:08)
[2018-07-10] MEDS: Gabapentin 100 MG CAP PO SCH ×3 (09:24→22:45)
[2018-07-10] MEDS: Lisinopril 10 MG TAB PO SCH (09:24)
[2018-07-10] MEDS: Atenolol 25 MG TAB PO SCH (09:24)
[2018-07-10] MEDS: Furosemide 20 MG TAB PO SCH (09:25)
[2018-07-10] MEDS: Aspirin 325 MG TAB PO SCH (09:25)
[2018-07-10] MEDS: Bisacodyl 5 MG TAB PO PRN (09:29)
[2018-07-10] MEDS ORDERED: Furosemide 40 MG/4 ML VIAL SLOW IVP SCH (12:00)
[2018-07-10] MEDS: Insulin Regular 300 UNITS/3 ML VIAL SC PRN (12:20)
--- NOTE | 2018-07-10 14:53 | PDOC.CTH ---
Cardiology Progress Note - Subjective Doing better today after IV lasix given earlier today. Her O2 sats are up to 94 % at rest. - Objective Vital Signs Temp Pulse Resp BP BP Pulse Ox 07/10/18 12:00 98.4 F 78 17 128/60 89 L 07/10/18 09:24 87 161/76 H 07/10/18 07:43 96 07/10/18 07:40 98.6 F 87 16 153/69 H 96 07/10/18 04:00 98.0 F 76 18 124/59 L 94 L Admit Weight 2.564 oz Weight 143 lb 1 oz 07/09/18 07/10/18 07/11/18 06:59 06:59 06:59 Intake Total 1567 1470 1000 Output Total 967 432 5221 Balance 687 670 -1200 - Physical Examination General/Neuro: alert & oriented x3, NAD Neck: no JVD present Lungs: unlabored respirations Heart: RRR Abdomen: NT/ND Extremities: other: (no edema.) - Telemetry Telemetry Rhythm: NSR - Labs Result Diagrams: 07/06/18 05:22 07/06/18 05:22 - Assessment/Plan 1. Severe multivessel CAD. 2. S/P CABG 3. HTN 4. HLP 5. T2 DM 6. Anemia PLAN: - Increase PT as tolerated. - Continue aspirin/Statin. - Continue BB - Continue ACEI. - Hypoxia improved after one dose IV lasix. - She feels well and better than yesterday. - October discharge. - Will increase her PO lasix to 40 mg daily. - Follow up in the office in 1 month.
[2018-07-10] MEDS: Atorvastatin Calcium 20 MG TAB PO SCH (22:45)
[2018-07-10] MEDS: Bisacodyl 10 MG SUPP PR PRN (22:50)
[2018-07-11] MEDS ORDERED: Furosemide 40 MG/4 ML VIAL SLOW IVP SCH (09:00)
[2018-07-11] MEDS ORDERED: Furosemide 40 MG TAB PO SCH (09:00)
[2018-07-11] MEDS: glipiZIDE 5 MG TAB PO SCH ×2 (09:33→17:31)
[2018-07-11] MEDS: Aspirin 325 MG TAB PO SCH (09:35)
[2018-07-11] MEDS: Potassium Chloride 10 MEQ TAB PO SCH (09:35)
[2018-07-11] MEDS: metFORMIN 500 MG TAB PO SCH ×2 (09:35→17:31)
[2018-07-11] MEDS: Atenolol 25 MG TAB PO SCH (09:35)
[2018-07-11] MEDS: Gabapentin 100 MG CAP PO SCH ×2 (09:35→17:31)
[2018-07-11] MEDS: Lisinopril 10 MG TAB PO SCH (09:36)
[2018-07-11] MEDS: Famotidine 20 MG TAB PO SCH (09:36)
[2018-07-11] MEDS: HYDROcodone/Acetaminophen 5/325 mg Tablet PO PRN (09:39)
--- NOTE | 2018-07-11 12:31 | PDOC.CTH ---
Cardiology Progress Note - Subjective Doing well. No new issues. - Objective Vital Signs Temp Pulse Resp BP BP BP Pulse Ox 07/11/18 09:36 161/76 H 07/11/18 09:35 70 07/11/18 08:00 98.1 F 70 18 161/67 H 100 07/11/18 04:00 98.0 F 68 18 113/55 L 96 Admit Weight 2.564 oz Weight 143 lb 1 oz 07/10/18 07/11/18 07/12/18 06:59 06:59 06:59 Intake Total 1470 1800 Output Total 800 3600 Balance 670 -1800 - Physical Examination General/Neuro: alert & oriented x3, NAD Neck: no JVD present Lungs: CTA, unlabored respirations Heart: RRR Abdomen: NT/ND Extremities: + edema B (Trace) - Telemetry Telemetry Rhythm: NSR - Labs Result Diagrams: 07/06/18 05:22 07/06/18 05:22 - Assessment/Plan 1. Severe multivessel CAD. 2. S/P CABG 3. HTN 4. HLP 5. T2 DM 6. Anemia PLAN: - Continue aspirin/Statin. - Continue BB ACEI. - Hypoxia improved but still requiring home O2 to maintain sats. - October discharge. - Follow up in the office in 1 month. - Rx for Lasix 40 mg PO daily sent to [facility] on [address].
[2018-07-11 12:46] VITALS: TEMP 97.9
[2018-07-11 15:43] VITALS: BP 151/69
--- NOTE | 2018-07-23 12:59 | DIS ---
DATE OF ADMISSION: 07/04/2018 DATE OF DISCHARGE: 07/11/2018 DIAGNOSES: 1. Coronary artery disease. 2. Dyslipidemia. 3. Hypertension. 4. Diabetes mellitus. 5. History of tobacco abuse. PROCEDURES: Elective coronary artery bypass grafting x3, 1. Left internal mammary artery to LAD. 2. Saphenous vein to diagonal. 3. Saphenous vein to OM. DESCRIPTION OF HOSPITAL STAY: Ms. Lopez was brought in for elective coronary artery bypass grafting. Postoperatively, she did well. She had no rhythm disturbances. At the time of discharge, she was ambulatory, tolerating a regular diet, having good bowel and bladder function. Incisions were clean and dry without evidence of infection. DISCHARGE MEDICATIONS: Include, 1. Aspirin 325 mg daily. 2. Eliquis 5 mg b.i.d. 3. Lisinopril 20 mg b.i.d. 4. Atenolol 25 mg daily. 5. Atorvastatin 20 mg at bedtime. 6. Gabapentin 100 mg t.i.d. 7. Glipizide/metformin 2 b.i.d. 8. [place] 5/325 one to two q.6 hours p.r.n. pain. FOLLOWUP: Follow up is with me in [address] Faust in a month. Job ID: [id number]
== END 2018-07-11 17:52 | disposition home or self-care (01) | DRG 236 ==
LOC: SURG A 07-04 06:04 → CCU 07-04 11:21 → 2NO 07-07 18:29
PROVIDERS: ADMIT Thoracic Surgery (Cardiothoracic Vascular Surgery); ATTEND Thoracic Surgery (Cardiothoracic Vascular Surgery)
PROC: 02100Z9 Bypass Coronary Artery, One Artery from Left Internal Mammary, Open Approach (ICD-10-PCS; principal; 2018-07-04)
PROC: 021109W Bypass Coronary Artery, Two Arteries from Aorta with Autologous Venous Tissue, Open Approach (ICD-10-PCS; 2018-07-04)
PROC: 06BQ4ZZ Excision of Left Saphenous Vein, Percutaneous Endoscopic Approach (ICD-10-PCS; 2018-07-04)
PROC: 5A1221Z Performance of Cardiac Output, Continuous (ICD-10-PCS; 2018-07-04)
PROC: 30233N1 Transfusion of Nonautologous Red Blood Cells into Peripheral Vein, Percutaneous Approach (ICD-10-PCS; 2018-07-05)
DX: I25.10 Atherosclerotic heart disease of native coronary artery without angina pectoris (principal); I10 Essential (primary) hypertension; E78.2 Mixed hyperlipidemia; E11.9 Type 2 diabetes mellitus without complications; D64.9 Anemia, unspecified; Z87.891 Personal history of nicotine dependence; Z79.84 Long term (current) use of oral hypoglycemic drugs; Z79.82 Long term (current) use of aspirin; Z79.899 Other long term (current) drug therapy
CPT/HCPCS: 36415; 36416; 36430; 71045; 80048; 82805; 82947; 85025; 85027; 85610; 85730; 86850; 86900; 86901; 93005; 93010; 93798; 94002; 94150; J0360; J0670; J1100; J1642; J1644; J1815; J1885; J1940; J2001; J2150; J2250; J2270; J2370; J2405; J2440; J2704; J2720; J3010; J3370; J3475; J3480; J7050; P9016; P9045; P9047; S0017; S0028

== ENCOUNTER 2018-07-15 00:37 | Inpatient (IN) | payer MEDICARE, BC ==
[2018-07-15 01:23] LABS: #Basophils 0.1 thou/uL (0.0-0.2); #Eosinphils 0.6 thou/uL (0.0-0.7); #Lymphocytes 2.7 thou/uL (1.20-3.40); #Neutrophils 4.8 thou/uL (1.40-6.50); %Basophils 0.6 % (0.0-1.0); %Eosinophils 6.4 % (0.0-10.0); %Lymphocytes 29.6 % (21.0-51.0); %Monocytes 10.8 % (0.0-10.0); %Neutrophils 52.7 % (42.0-75.0); Hemoglobin 9.5 g/dL (12.0-16.0); Mean Corpuscular HGB CONC 32.2 g/dL (32.0-36.0); Mean Corpuscular Hemoglobin 29.6 pg (27.0-31.0); Mean Corpuscular Volume 91.9 fL (78.0-98.0); Mean Platelet Volume 6.5 fL (7.4-10.4); Platelet Count 358 thou/uL (130-400); RBC Distribution Width 13.8 % (11.5-14.5); Red Blood Cell (RBC) Count 3.22 mill/uL (4.20-5.40); White Blood Cell (WBC) Count 9.1 thou/uL (4.8-10.8)
[2018-07-15 01:42] LABS: ALT (SGPT) 25 U/L (8-55); AST (SGOT) 19 U/L (5-34); Albumin 3.8 g/dL (3.4-4.8); Alkaline Phosphatase 135 U/L (40-150); Anion Gap 18 mmol/L (10-20); BUN (Urea Nitrogen) 21 mg/dL (9.8-20.1); Bilirubin, Total 0.7 mg/dL (0.2-1.2); CK (CPK) 72 U/L (29-168); Calc. Creatinine Clearance 0 mL/min (70-130); Carbon Dioxide 31 mmol/L (23-31); Chloride 96 mmol/L (98-107); Estimated GFR-MDRD 75; Glucose 70 mg/dL (83-110); Potassium 3.6 mmol/L (3.5-5.1); Protein, Total 6.8 g/dL (6.0-8.3); Sodium 141 mmol/L (136-145)
[2018-07-15 02:09] LABS: CKMB 1.8 ng/mL (0-6.6)
[2018-07-15] MEDS ORDERED: Ondansetron ODT 4 MG TAB PO PRN (04:13)
[2018-07-15] MEDS ORDERED: Acetaminophen 325 MG TAB PO PRN (04:13)
[2018-07-15] MEDS ORDERED: HYDROcodone/Acetaminophen 5/325 mg Tablet PO PRN ×2 (04:16)
[2018-07-15 04:19] LABS: Critical Call Chem Troponin I RESULT DECREASING; Troponin I 0.419 ng/mL (< 0.028)
[2018-07-15 04:51] VITALS: BMI 31.4
[2018-07-15] MEDS ORDERED: HumaLOG 300 UNITS/3 ML VIAL SC PRN ×2 (07:56)
[2018-07-15] MEDS ORDERED: Dextrose 50% Abboject 50 ML SYRINGE SLOW IVP PRN (07:56)
[2018-07-15] MEDS ORDERED: Dextrose 5% in Water 1,000 ML IV PRN (07:56)
[2018-07-15 08:10] LABS: Critical Call Chem Troponin I RESULT DECREASING; Troponin I 0.385 ng/mL (< 0.028)
[2018-07-15] MEDS: Aspirin 325 MG TAB PO SCH (08:43)
[2018-07-15] MEDS: Lisinopril 20 MG TAB PO SCH (08:44)
[2018-07-15] MEDS: Gabapentin 100 MG CAP PO SCH ×3 (08:44→20:43)
[2018-07-15] MEDS: Atenolol 25 MG TAB PO SCH (08:44)
[2018-07-15] MEDS: Furosemide 40 MG/4 ML VIAL SLOW IVP SCH (08:44)
[2018-07-15] MEDS: Enoxaparin Sodium 80 MG/0.8 ML SYRINGE SC SCH ×2 (08:45→20:39)
--- NOTE | 2018-07-15 08:48 | CT ---
PRELIMINARY REPORT/[facility]/EMERGENTY AFTER-HOURS PROCEDURE CT Angiography Chest With Contrast EXAM DATE/TIME: 07/15/2018 1:51 AM CLINICAL HISTORY: 73 years old, female; Signs and symptoms; Shortness of breath; Prior surgery; Surgery date: 3-7 days post-operative; Patient HX: 73/f who presents to the ed with C/O shortness of breath that started sumi palma. 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 PT recently discharged from hospital on 07/11/18 after 3 vessel cabg on 07/04/18. Roder reports that PT was in the hospital for a week secondary to dyspnea and hypoxia on exertion. Finally on the she was better. PT family reported approx. 12 lb weight gain over two days andfwere told by patient tube mounter, dr. Faust, that she should increase lasix to 80 MG for 2 days. PT took that yesterday and family reports that swelling has decreased markedly. TECHNIQUE: Axial computed tomographic angiography images of the chest with intravenous contrast using CT angiogr aphy protocol. MIP reconstructed images were created and reviewed. COMPARISON: No relevant prior studies available. FINDINGS: Pulmonary arteries: No pulmonary emboli. Aorta: Atherosclerotic disease of the thoracic aorta without aneurysm or dissection. Lungs: Mild bibasilar atelectasis and/or scarring. Pleural space: Normal. No pneumothorax. No pleural effusion. Heart: Changes of prior sternotomy and CABG. Mild four-chamber cardiac enlargement. Mediastinum: Changes of tracheobronchomalacia. Adrenals: Mild bilateral adrenal hyperplasia. Kidneys and ureters: Nonobstructive left nephrolithiasis. Lymph nodes: Unremarkable. No enlarged lymph nodes. Bones/joints: Unremarkable. No acute fracture. Soft tissues: Unremarkable. Other findings: Bladder is surgically absent. IMPRESSION: No pulmonary emboli. Thank you for allowing us to participate in the care of your patient. Dictated and Authenticated by: Cedric Kauffman MD 07/15/2018 2:33 AM Central Time ([place] & [place]) FINAL REPORT EMERGENCY AFTER HOURS CT PULMONARY ANGIOGRAM WITH IV CONTRAST AND 3D MIP RECONSTRUCTIONS: Date: 07/15/18 PROVIDED CLINICAL HISTORY: Shortness of breath. FINDINGS: Filling defect is seen within right middle lobe branch of pulmonary arterial system compatible with p ulmonary embolus. No definite additional emboli are seen. Heart is enlarged. Vascular calcification w ith post CABG changes. There are bibasilar parenchymal opacities, greater at the left lung base. At t he left lung base, this could reflect subsegmental atelectasis and/or infiltrate. The airway appears patent and of normal caliber. There is a mild pericardial effusion. No evidence for pleural fluid or pneumothorax. The visualized portions of the upper abdomen appear unremarkable. The osseous structure s demonstrate no concerning lytic or blastic lesions. IMPRESSION: 1. Right middle lobe pulmonary embolus. 2. Left basilar parenchymal opacity may reflect volume loss and/or infiltrate. Consider follow-up. 3. Other findings as above. Findings communicated to the patient's nurse, Mary Lou, at 0758 hours on 07/15/18. This report is in disagreement with the preliminary interpretation given by Titi. POS: JOSE DANIEL
[2018-07-15] MEDS ORDERED: Enoxaparin Sodium 60 MG/0.6 ML SYRINGE SC SCH (09:00)
[2018-07-15] MEDS ORDERED: Furosemide 40 MG TAB PO SCH (09:00)
[2018-07-15] MEDS ORDERED: Enoxaparin Sodium 40 MG/0.4 ML SYRINGE SC SCH (09:00)
[2018-07-15] MEDS ORDERED: ISOVUE-370 76%-LOCM 1 ML ONE (10:16)
--- NOTE | 2018-07-15 11:47 | ULT ---
BILATERAL LOWER EXTREMITY VENOUS DUPLEX EXAM: Date: 07/15/18 HISTORY: Bilateral lower extremity pain and edema. FINDINGS: Real-time color Doppler evaluation of right and left lower extremity was performed from groin to calf . This includes evaluation of the common femoral, superficial and profunda femoral, saphenous, poplit eal, and posterior tibial veins. This shows patent deep venous systems bilaterally. There is normal c ompressibility and augmentation. There is no evidence of deep venous thrombosis. IMPRESSION: No evidence of deep venous thrombosis of either lower extremity. POS: JOSE DANIEL
--- NOTE | 2018-07-15 12:51 | PDOC.EVN ---
Event Note - Event Note Event Note: Pt seen and examined. Chart reviewed. car ediscussed w family at bedside. Feels better.walked a little bit has generalized bodyaches CTA results discussed w Radiologist-small PE. No DVT in Doppler legs will start lovenox BID for now and will request Pulmonary consult w regards to need for OAC for DC as pt is few days out of CABG Troponin high likely due to recent Sx cont diuresis. Cont cardioprudent meds.Reviewed. Awaiting cardiology recs
--- NOTE | 2018-07-15 13:27 | HP ---
PRIMARY CARE DOCTOR: Eugenio Acosta MD CODE STATUS: Full code. TIME OF EVALUATION: 4 a.m. CHIEF COMPLAINT: Shortness of breath. HISTORY OF PRESENT ILLNESS: This is a 73-year-old female patient with past medical history of coronary artery disease. The patient on the 9th of this month, had been discharged home, had been improving. Dr. Faust has been adjusting her medications as per family member report. The shortness of breath has started around 1 a.m. The patient was reported that it was worse with exertion. The symptoms were [id number] lasted until the patient got here to the hospital and received medical treatment. REVIEW OF SYSTEMS: CONSTITUTIONAL: No fever, chills, or generalized weakness. RESPIRATORY: No cough or sputum production. The patient reported shortness of breath. CARDIOVASCULAR: No chest pain or palpitation. GASTROINTESTINAL: No nausea. No vomiting, diarrhea, or abdominal pain. SHIP'S MASTER: No dizziness, headache, or feeling lightheaded. GENITOURINARY: No burning on urination. EXTREMITIES: No leg swelling. All other systems were reviewed and negative except for the findings mentioned above. PAST MEDICAL HISTORY: Positive for coronary artery disease, chronic angina, congestive heart failure, diabetes, hyperlipidemia, hypertension. PAST SURGICAL HISTORY: CABG on the of this month, cholecystectomy, hysterectomy. PSYCHIATRIC HISTORY: Anxiety. SOCIAL HISTORY: Former tobacco smoker and quit more than 10 years ago. No alcohol. No drugs. ALLERGIES: NO KNOWN DRUG ALLERGIES REPORTED. MEDICATIONS: 1. Lasix. 2. Gabapentin. 3. Lisinopril. 4. Atenolol. 5. Evans. 6. Glipizide. 7. Atorvastatin. PHYSICAL EXAMINATION: VITAL SIGNS: On presentation, heart rate 77, oxygen saturation 89 on room air, blood pressure 161/77 with heart rate 74, respiratory rate was 20, temperature 98, pain 0/10, oxygen saturation was 88 on room air. GENERAL APPEARANCE: The patient is alert, oriented, not in acute distress. HEENT: Eyes; normal conjunctivae. Moist oral mucosa. Anicteric. Bilateral JVD. RESPIRATORY: Bilateral air entry decreased. No rales. No wheezes. Symmetric expansion. CARDIOVASCULAR: Normal rate, regular rhythm. No murmurs. No gallops. No edema. ABDOMEN: Soft. Normal bowel sounds. MUSCULOSKELETAL: Baseline range of motion and strength. No tenderness. SKIN: Warm and intact. No pallor. No rash. No redness. Peripheral pulses are present. Capillary refill is easily intact. NEUROLOGIC: No evidence of any new focal weakness. Baseline speech. Cranial nerves seems to be intact. PSYCHIATRIC: The patient is in good mood. No anxiety. Oriented. Optimal judgement. DIAGNOSTIC STUDIES: EKG was reviewed. The patient has normal sinus rhythm with a rate of [address] of 154, QT corrected 510, left axis deviation, RBBB, and left ventricular hypertrophy with repolarization abnormalities. CT angio was done and showed no pulmonary embolism. No other significant cardiopulmonary abnormalities. Labs are reviewed. The patient has white count 9.1, hemoglobin 9.5, MCV 91.9, platelet count 358. Chemistry; sodium 141, potassium 3.6, chloride 96, carbon dioxide 31, anion gap of 18, BUN 21, creatinine 0.76, GFR 75, glucose 70. LFTs were negative. Troponin initial was 0.419, the previous one 0.452. Beta natriuretic peptide is 146. ASSESSMENT AND PLAN: The patient was placed in the hospital with the following medical problems; 1. Possible congestive heart failure exacerbation versus [id number] myocardial infarction, as noted the patient received surgery on July 04. Dr. Faust has been adjusting medications to the patient in the past week, we are consulted him for any further recommendation with the patient. 2. Epe-AW-[id number] myocardial infarction, unclear at this point type 1 versus type 2. The patient had recent surgery, troponin 0.4 x2. We will trend troponins. Observe in tele and will treat accordingly. 3. Normocytic anemia, hemoglobin is 9.5. In previous admission, it was in the 7 in October 2010. no need for any acute intervention. 4. Controlled diabetes, reconcile home medications, diabetic diet. 5. Hyperlipidemia, low-cholesterol diet is advised, reconcile home medications. 6. Deep venous thrombosis prophylaxis. Job ID: [id number]
--- NOTE | 2018-07-15 18:51 | CON ---
DATE OF CONSULTATION: 07/15/2018 HISTORY OF PRESENT ILLNESS: Ms. Lopez is a very pleasant 73-year-old female, who recently was discharged after coronary artery bypass grafting. She was sent home on the . She presented yesterday with complaints of cough and shortness of breath. A CT pulmonary angiogram in the emergency department showed a single pulmonary perfusion defect in the right middle lobe. No other defects were seen. Bilateral lower extremities were negative. She has a history according to the daughter of cardiomyopathy. She says she has been short of breath in the past and usually gets better with the Lasix. I contacted Cardiothoracic Surgery. They did not know she had been readmitted to the hospital. They will stop by tomorrow. Dr. Wright already made rounds today. There is no reason for him to come in. She does have an echocardiogram showing diastolic dysfunction. She says she feels back to her baseline at this point. She was started on lovenox yesterday. PAST MEDICAL HISTORY: Remarkable for no thromboembolic disease in the family and no history of pulmonary embolus or DVT in the past. She has a history of coronary artery disease, angina, diabetes, diastolic heart failure, lipid disorder, and hypertension. In addition to her bypass, she has had a cholecystectomy and hysterectomy in the past. SOCIAL HISTORY: She is a smoker. She quit 10 years ago. She does not drink. She does not use drugs. ALLERGIES: SHE HAS NO REPORTED ALLERGIES. FAMILY HISTORY: Negative for lung disease in early age. REVIEW OF SYSTEMS: Ten point review of systems completed, negative. PHYSICAL EXAMINATION: GENERAL: Ms. Lopez is a very pleasant 73-year-old female. VITAL SIGNS: She is afebrile. Heart rate 67, respiratory rate 16, oximetry 91 on room air, she is 100% on 2 L this morning. Blood pressure is 99/54. HEAD: Unremarkable. NECK: Unremarkable. LUNGS: Clear. Sternum is healing nicely. HEART: Regular rhythm. S1 and S2 are normal. ABDOMEN: Soft and nontender. EXTREMITIES: Without clubbing, cyanosis, or edema. LABORATORY DATA: White count 9.1, hemoglobin 9.5, platelets 358. BNP was 146. Electrolytes were essentially normal on admission. She had a BUN of 21. She did not have a chest x-ray in the emergency room, but had a CT pulmonary angiogram, which showed atelectasis of both lung bases off. The initial report was no pulmonary emboli. The review report by the second radiologist here showed a filling defect in the right middle lobe subsegmental branch. IMPRESSION: I suspect this is a false-positive thromboembolic finding on CT pulmonary angiogram. Solitary small defects are quite often false positives. She has no lower extremity evidence for deep venous thrombosis. I will switch to p.o. anticoagulantsand just anticoagulate her for 3 months after this. There is no really easy way to sort this out. We are really more or less forced to just anticoagulate her for 3 months. She does not appear to be a fall risk at this point, so she should do well with this. TIME SPENT: This is a 50-minute consult, with greater than 50% of the time was spent on the coordinating care. Job ID: [id number] [email or web address]
[2018-07-15] MEDS ORDERED: Atorvastatin Calcium 20 MG TAB PO SCH (21:00)
[2018-07-16 04:48] LABS: #Basophils 0.1 thou/uL (0.0-0.2); #Eosinphils 0.6 thou/uL (0.0-0.7); #Lymphocytes 2.1 thou/uL (1.20-3.40); #Monocytes 0.9 thou/uL (0.11-0.59); #Neutrophils 4.6 thou/uL (1.40-6.50); %Basophils 0.7 % (0.0-1.0); %Eosinophils 7.5 % (0.0-10.0); %Lymphocytes 25.2 % (21.0-51.0); %Monocytes 10.6 % (0.0-10.0); %Neutrophils 55.9 % (42.0-75.0); Hemoglobin 9.4 g/dL (12.0-16.0); Mean Corpuscular HGB CONC 32.5 g/dL (32.0-36.0); Mean Corpuscular Hemoglobin 30.7 pg (27.0-31.0); Mean Corpuscular Volume 94.7 fL (78.0-98.0); Mean Platelet Volume 6.2 fL (7.4-10.4); Platelet Count 333 thou/uL (130-400); RBC Distribution Width 13.7 % (11.5-14.5); Red Blood Cell (RBC) Count 3.06 mill/uL (4.20-5.40); White Blood Cell (WBC) Count 8.2 thou/uL (4.8-10.8)
[2018-07-16 05:08] LABS: Anion Gap 15 mmol/L (10-20); BUN (Urea Nitrogen) 16 mg/dL (9.8-20.1); Calc. Creatinine Clearance 81 mL/min (70-130); Calcium 9.9 mg/dL (7.8-10.44); Carbon Dioxide 33 mmol/L (23-31); Chloride 94 mmol/L (98-107); Estimated GFR-MDRD Greater than 90; Glucose 133 mg/dL (83-110); Potassium 3.3 mmol/L (3.5-5.1); Sodium 139 mmol/L (136-145)
[2018-07-16] MEDS ORDERED: Potassium Chloride 20 MEQ TAB PO SCH (07:45)
[2018-07-16] MEDS: Atenolol 25 MG TAB PO SCH (08:57)
[2018-07-16] MEDS: Gabapentin 100 MG CAP PO SCH ×2 (08:58→14:21)
[2018-07-16] MEDS: Lisinopril 20 MG TAB PO SCH (08:58)
[2018-07-16] MEDS: Aspirin 325 MG TAB PO SCH (09:00)
[2018-07-16] MEDS ORDERED: Apixaban 5 MG TAB PO SCH (09:00)
[2018-07-16] MEDS: Furosemide 40 MG/4 ML VIAL SLOW IVP SCH (09:08)
[2018-07-16 12:09] VITALS: BP 105/55; TEMP 98.1
--- NOTE | 2018-07-16 13:48 | PRG ---
DATE OF SERVICE: 07/16/2018 SUBJECTIVE: Ms. Lopez is stable overnight. She has no complaints. OBJECTIVE: VITAL SIGNS: She is afebrile. Heart rate 61, respiratory rate 20, oximetry is 95% on room air, and blood pressure 105/55. LUNGS: Clear. HEART: Regular rhythm. ABDOMEN: Soft. LABORATORY DATA: White count 8.2, hemoglobin 9.4, platelets 333. Sodium 139, potassium 3.3, chloride 94, bicarb 33, BUN 16, and creatinine 0.64. IMPRESSION: ? thromboembolic disease. I believe the CT finding is probably false-positive. PLAN: Plan to treat her with Eliquis for 3 months. She can be discharged in my opinion. I will see her in the office in a month and follow up. Job ID: [id number]
--- NOTE | 2018-07-16 20:36 | PDOC.CTH ---
Cardiology Progress Note - Subjective Doing better. Hypoxia improved. - Objective Vital Signs Temp Pulse Resp BP Pulse Ox 07/16/18 10:57 98.1 F 61 20 105/55 L 95 07/16/18 08:57 65 Weight 145 lb 07/15/18 07/16/18 07/17/18 06:59 06:59 06:59 Intake Total 1000 480 Output Total 600 1525 900 Balance -600 -525 -420 - Physical Examination General/Neuro: alert & oriented x3, NAD Neck: no JVD present Lungs: unlabored respirations Heart: RRR Abdomen: NT/ND Extremities: other: (no edema) - Telemetry Telemetry Rhythm: NSR - Labs Result Diagrams: 07/16/18 04:38 07/16/18 04:38 Troponin/CKMB CK-MB (CK-2) 1.8 ng/mL (0-6.6) 07/15/18 01:14 Troponin I 0.385 ng/mL (< 0.028) H* 07/15/18 07:17 - Assessment/Plan 1. Acute PE 2. Diastolic heart failure 3. S/P CABG PLAN: - Agree with 3 months of anticoagulation with Eliquis. - Continue Lasix as previously ordered as hypoxia only improved with removal of fluid. - May discharge home. - Follow up in 1 month.
--- NOTE | 2018-07-17 05:21 | DIS ---
DATE OF ADMISSION: 07/15/2018 DATE OF DISCHARGE: 07/16/2018 CONDITION: At the time of discharge, stable and improved. DISCHARGE DISPOSITION: Home. DISCHARGE DIAGNOSES: 1. Mild acute on chronic congestive heart failure. 2. Small right middle lobe pulmonary embolism. 3. History of coronary artery disease, status post coronary artery bypass graft on 07/04/2018. 4. Diabetes mellitus. 5. Dyslipidemia. 6. Hypertension. DISCHARGE MEDICATIONS: New medication: 1. Eliquis 5 mg p.o. b.i.d. Rest of the medications have remained unchanged. As follows: 1. Lisinopril 20 b.i.d. 2. Glipizide/metformin 2 tablets p.o. b.i.d. 3. Gabapentin 100 mg p.o. t.i.d. 4. Lasix 40 mg daily. 5. Atorvastatin 20 mg daily. 6. Atenolol 25 mg daily. 7. Aspirin 325 mg daily. IN-HOUSE CONSULTATIONS: 1. Cardiology, Aleksandar Faust MD. 2. Pulmonary Medicine, Manoj Zavala MD. PROCEDURES DONE IN THE HOSPITAL: 1. CT angio of the thorax, which showed right middle lobe small pulmonary embolism. 2. Transthoracic echocardiogram which shows ejection fraction of 50% to 55% with normal-sized atrium and left ventricle. Mild diastolic dysfunction. Otherwise, no significant valvular abnormality. 3. Lower extremity Doppler ultrasound bilaterally, which is negative for any deep venous thrombosis. HISTORY OF PRESENTING ILLNESS: Ms. Lopez is a 73-year-old female with recent coronary artery bypass graft on 07/04/2018, who presented to the emergency room with complaints of shortness of breath and leg swelling. Upon presentation, her oxygen saturation was 89% on room air. She was somewhat hypertensive with a blood pressure of 161/77. EKG showed a prolonged QT at 510 with right bundle branch block and left axis deviation. CT angio was done, which showed small pulmonary embolism. Her cardiac enzymes were checked and her troponin was 0.419 and 0.452. There was no baseline troponin drawn during her last hospitalization when she underwent CABG, so there was nothing to compare to. Her BNP was 146. No chest x-ray was done in the ER. HOSPITAL COURSE: Shortly after her admission, CT angio results came back positive for pulmonary embolism. She was started initially on therapeutic dose of Lovenox at 1 mg/kg and Pulmonary Medicine was consulted as PE was rather small and there was a question if she needs treatment or not. Lower extremity Doppler ultrasound was also ordered, which was negative. Cardiology was also consulted with question of mild fluid overload and she was diuresed with IV Lasix. Her Lovenox was changed to Eliquis. Dr. Zavala saw the patient in the hospital. Dr. Faust also saw the patient in the hospital for Cardiology team and he agreed with continuation of Eliquis. Lovenox was discontinued. The patient's Lasix was changed to oral after adequate diuresis. Her hypoxia improved and she was saturating 95% to 96% on room air prior to discharge. She was cleared for discharge by Pulmonary and Cardiology teams with outpatient followup. She was seen and examined prior to discharge. PHYSICAL EXAMINATION: VITAL SIGNS: This morning, vital signs, temperature 98.1, pulse of 61, respirations 20, saturating 95% on room air, blood pressure 105/55. GENERAL: No acute distress, sitting up in chair, eating lunch. Awake, alert, and oriented x3. CHEST: Clear to auscultation bilaterally. HEART: Rate and rhythm are regular. EXTREMITIES: Free of any cyanosis, clubbing, or edema. DISCHARGE PLAN: Discharge plan was discussed with the family members present at bedside and the patient, who verbalized understanding. TIME SPENT: Total time spent in the discharge of this patient, 32 minutes. Job ID: [id number]
--- NOTE | 2018-07-17 08:25 | CON ---
DATE OF CONSULTATION: HISTORY OF PRESENT ILLNESS: The patient is a pleasant 73-year-old woman, who presented with dyspnea. The patient has a history of coronary artery disease. She recently underwent coronary artery bypass graft surgery x3. She had a WADE placed to LAD, a saphenous vein graft to diagonal and a saphenous vein graft placed to the OM. Her coronary arteries were heavily calcified. The patient following surgery presents to the hospital with marked dyspnea. She reports also having chest pain whenever she took a deep breath. PAST MEDICAL HISTORY: Significant for, 1. Coronary artery disease. 2. Hypertension. 3. Diabetes mellitus. 4. Dyslipidemia. PAST SURGICAL HISTORY: She had a hysterectomy, cataract surgery, cholecystectomy. MEDICATIONS: See nursing list. SOCIAL HISTORY: Former smoker. ALLERGIES: NO KNOWN DRUG ALLERGIES. FAMILY HISTORY: No strong family history of heart disease. REVIEW OF SYSTEMS: Ten-point system otherwise unremarkable. No history of easy bruising or bleeding. PHYSICAL EXAMINATION: GENERAL: Obese woman, in no acute distress. VITAL SIGNS: Blood pressure 99/54. NECK: Showed no jugular venous distention. LUNGS: Clear to auscultation. HEART: Regular rate and rhythm. Normal S1, S2. ABDOMEN: Nondistended. EXTREMITIES: Showed no edema. VASCULAR: Radial pulse is 2+. LABORATORY DATA: White blood count 9.1, hemoglobin 9.5, hematocrit 29.6. Her sodium is 141, potassium 3.6, chloride 96, bicarbonate of 31, BUN 21, creatinine is 0.76. Troponin was a 0.452. DIAGNOSTIC DATA: Her EKG revealed normal sinus rhythm, right bundle-branch block and left anterior fascicular block. CT scan revealed a right middle lobe pulmonary embolus. IMPRESSION: 1. Pulmonary embolism. 2. History of coronary artery bypass surgery x3. 3. Heavily calcified coronary vessels. 4. Hypertension. 5. Diabetes mellitus. 6. Dyslipidemia. PLAN: This patient presents with a pulmonary embolus. The patient is, from a cardiac standpoint, being treated with Lovenox, at this time would increase the dose of her Lipitor with her heavily calcified vessels. We will follow this patient with you through her hospitalization Job ID: [id number]
== END 2018-07-16 14:59 | disposition home or self-care (01) | DRG 175 ==
LOC: ERS 00:37 → 2SW 02:57 → OBSVTOIN 18:00
PROVIDERS: ADMIT Hospitalist; ATTEND Hospitalist
DX: I26.99 Other pulmonary embolism without acute cor pulmonale (principal); I50.33 Acute on chronic diastolic (congestive) heart failure; I42.9 Cardiomyopathy, unspecified; I25.10 Atherosclerotic heart disease of native coronary artery without angina pectoris; I11.0 Hypertensive heart disease with heart failure; Z95.1 Presence of aortocoronary bypass graft; I45.81 Long QT syndrome; I45.5 Other specified heart block; E11.9 Type 2 diabetes mellitus without complications; E78.5 Hyperlipidemia, unspecified; F41.9 Anxiety disorder, unspecified; Z87.891 Personal history of nicotine dependence; Z79.84 Long term (current) use of oral hypoglycemic drugs
CPT/HCPCS: 36415; 36416; 71275; 80048; 80053; 82550; 82553; 83880; 84484; 85025; 90471; 90662; 93005; 93306; 93970; G0008; J1650; J1940

== ENCOUNTER 2019-01-04 06:53 | Outpatient (CLI) | payer MEDICARE, BC ==
[2019-01-04 14:30] LABS: #Basophils 0.1 thou/uL (0.0-0.2); #Eosinphils 0.2 thou/uL (0.0-0.7); #Lymphocytes 2.3 thou/uL (1.20-3.40); #Monocytes 0.6 thou/uL (0.11-0.59); #Neutrophils 4.7 thou/uL (1.40-6.50); %Basophils 0.7 % (0.0-1.0); %Eosinophils 2.2 % (0.0-10.0); %Lymphocytes 29.1 % (21.0-51.0); %Monocytes 7.6 % (0.0-10.0); %Neutrophils 60.4 % (42.0-75.0); Hemoglobin 8.6 g/dL (12.0-16.0); Mean Corpuscular HGB CONC 30.7 g/dL (32.0-36.0); Mean Corpuscular Hemoglobin 25.3 pg (27.0-31.0); Mean Corpuscular Volume 82.4 fL (78.0-98.0); Mean Platelet Volume 7.2 fL (7.4-10.4); Platelet Count 303 thou/uL (130-400); Red Blood Cell (RBC) Count 3.42 mill/uL (4.20-5.40); White Blood Cell (WBC) Count 7.7 thou/uL (4.8-10.8)
[2019-01-04 14:36] LABS: PTT 30.2 SEC (22.9-36.1); Prothrombin Time 13.3 SEC (12.0-14.7)
[2019-01-04 14:54] LABS: ALT (SGPT) 12 U/L (8-55); AST (SGOT) 14 U/L (5-34); Alkaline Phosphatase 111 U/L (40-150); Anion Gap 13 mmol/L (10-20); BUN (Urea Nitrogen) 16 mg/dL (9.8-20.1); Bilirubin, Total 0.4 mg/dL (0.2-1.2); Calc. Creatinine Clearance 0 mL/min (70-130); Calcium 9.8 mg/dL (7.8-10.44); Carbon Dioxide 32 mmol/L (23-31); Chloride 97 mmol/L (98-107); Estimated GFR-MDRD 83; Globulin 2.7 g/dL (2.4-3.5); Glucose 152 mg/dL (83-110); Potassium 4.1 mmol/L (3.5-5.1); Protein, Total 6.7 g/dL (6.0-8.3); Sodium 138 mmol/L (136-145)
== END 2019-01-04 06:54 | disposition home or self-care (01) ==
LOC: LABBT 06:53
PROVIDERS: ATTEND Internal Medicine Cardiovascular Disease
DX: Z01.812 Encounter for preprocedural laboratory examination (principal); I25.10 Atherosclerotic heart disease of native coronary artery without angina pectoris
CPT/HCPCS: 80053; 85025; 85610; 85730

== ENCOUNTER 2019-01-08 07:55 | Day surgery (SDC) | payer MEDICARE, BC ==
[2019-01-04 13:26] VITALS: BMI 29.9
[2019-01-08] MEDS ORDERED: Lidocaine 1% (PF) 30 ML VIAL ONE (08:28)
[2019-01-08 09:00] LABS: Prothrombin Time 13.1 SEC (12.0-14.7)
[2019-01-08 09:02] LABS: #Eosinphils 0.2 thou/uL (0.0-0.7); #Lymphocytes 1.8 thou/uL (1.20-3.40); #Monocytes 0.7 thou/uL (0.11-0.59); #Neutrophils 5.2 thou/uL (1.40-6.50); %Basophils 0.6 % (0.0-1.0); %Eosinophils 2.5 % (0.0-10.0); %Lymphocytes 22.9 % (21.0-51.0); %Monocytes 9.2 % (0.0-10.0); %Neutrophils 64.9 % (42.0-75.0); Hemoglobin 8.6 g/dL (12.0-16.0); Mean Corpuscular HGB CONC 31.3 g/dL (32.0-36.0); Mean Corpuscular Hemoglobin 25.6 pg (27.0-31.0); Mean Corpuscular Volume 81.6 fL (78.0-98.0); Mean Platelet Volume 6.9 fL (7.4-10.4); Platelet Count 265 thou/uL (130-400); Red Blood Cell (RBC) Count 3.37 mill/uL (4.20-5.40)
[2019-01-08 09:15] LABS: Cardiac Risk 3.1 (Less than 4.5)
[2019-01-08] MEDS ORDERED: Midazolam HCl 2 mg/2 ml Vial ONE (09:33)
[2019-01-08] MEDS ORDERED: Fentanyl 100 MCG/2 ML VIAL ONE (09:33)
[2019-01-08 10:07] LABS: MDiff Complete? YES; Platelet Morphology Comment Appears Adequate; Polychromasia SLIGHT = 2-3 cells (100X) (0-2/hpf)
[2019-01-08] MEDS ORDERED: Iopamidol 370 76% 100 ML VIAL ONE (12:21)
== END 2019-01-08 14:00 | disposition home or self-care (01) ==
LOC: CCL 07:55
PROVIDERS: ATTEND Internal Medicine Cardiovascular Disease
PROC: 4A023N7 Measurement of Cardiac Sampling and Pressure, Left Heart, Percutaneous Approach (ICD-10-PCS; principal; 2019-01-08)
PROC: B2111ZZ Fluoroscopy of Multiple Coronary Arteries using Low Osmolar Contrast (ICD-10-PCS; 2019-01-08)
PROC: B2181ZZ Fluoroscopy of Left Internal Mammary Bypass Graft using Low Osmolar Contrast (ICD-10-PCS; 2019-01-08)
PROC: B2131ZZ Fluoroscopy of Multiple Coronary Artery Bypass Grafts using Low Osmolar Contrast (ICD-10-PCS; 2019-01-08)
DX: I25.810 Atherosclerosis of coronary artery bypass graft(s) without angina pectoris (principal); E78.00 Pure hypercholesterolemia, unspecified; I10 Essential (primary) hypertension; E11.9 Type 2 diabetes mellitus without complications; E78.5 Hyperlipidemia, unspecified; Z86.711 Personal history of pulmonary embolism; Z79.01 Long term (current) use of anticoagulants; Z79.82 Long term (current) use of aspirin; Z79.84 Long term (current) use of oral hypoglycemic drugs; Z79.899 Other long term (current) drug therapy; Z87.891 Personal history of nicotine dependence; Z95.1 Presence of aortocoronary bypass graft
CPT/HCPCS: 36415; 76942; 80061; 85025; 85610; 85730; 93459; 99152; 99153; C1769; J1644; J2001; J2250; J3010; Q9967

== ENCOUNTER 2021-06-01 16:24 | Outpatient (CLI) | payer MEDICARE, BC ==
[2021-06-01 17:06] LABS: #Eosinphils 0.2 10x3/uL (0.0-0.5); #Monocytes 0.8 10x3/uL (0.0-1.1); #Neutrophils 5.2 10x3/uL (1.5-8.4); %Basophils 0.4 % (0.0-2.0); %Eosinophils 2.5 % (0.0-6.0); %Lymphocytes 26.4 % (18.0-47.0); %Monocytes 9.8 % (0.0-10.0); %Neutrophils 60.7 % (40.0-75.0); Hemoglobin 11.4 g/dL (12.0-15.5); Mean Corpuscular HGB CONC 33.1 g/dL (32.0-36.0); Mean Corpuscular Hemoglobin 32.5 pg (27.0-33.0); Mean Platelet Volume 9.9 fl (7.4-10.4); Platelet Count 232 10x3/uL (150-450); RBC Distribution Width 12.3 % (11.5-14.5); Red Blood Cell (RBC) Count 3.51 10x6/uL (3.90-5.03); White Blood Cell (WBC) Count 8.5 10x3/uL (3.5-10.5)
[2021-06-01 17:22] LABS: ALT (SGPT) 16 U/L (8-55); AST (SGOT) 14 U/L (5-34); Albumin 4.4 g/dL (3.4-4.8); Alkaline Phosphatase 121 U/L (40-110); Anion Gap 12 mmol/L (10-20); BUN (Urea Nitrogen) 13 mg/dL (9.8-20.1); Bilirubin, Total 0.5 mg/dL (0.2-1.2); Calc. Creatinine Clearance 0 mL/min (70-130); Calcium 10.1 mg/dL (7.8-10.44); Carbon Dioxide 32 mmol/L (23-31); Chloride 100 mmol/L (98-107); Globulin 2.7 g/dL (2.4-3.5); Glucose 151 mg/dL (83-110); Potassium 4.1 mmol/L (3.5-5.1); Protein, Total 7.1 g/dL (5.8-8.1); Sodium 140 mmol/L (136-145)
[2021-06-02 11:26] LABS: SARS-CoV-2 PCR by NAA Not Detected (NotDetected)
== END 2021-06-01 16:25 | disposition home or self-care (01) ==
LOC: LABBT 16:24
PROVIDERS: ATTEND Internal Medicine Cardiovascular Disease
DX: Z01.812 Encounter for preprocedural laboratory examination (principal); Z20.822 Contact with and (suspected) exposure to COVID-19
CPT/HCPCS: 80053; 85025; U0003; U0005

== ENCOUNTER 2021-06-04 06:12 | Day surgery (SDC) | payer MEDICARE, BC ==
[2021-06-03 13:23] VITALS: BMI 29.7
[2021-06-04 07:15] LABS: Cardiac Risk 3.4 (Less than 4.5)
[2021-06-04] MEDS ORDERED: Fentanyl 100 MCG/2 ML VIAL ONE (09:01)
[2021-06-04] MEDS ORDERED: Midazolam HCl 2 mg/2 ml Vial ONE (09:01)
[2021-06-04] MEDS ORDERED: Iopamidol 370 76% 100 ML VIAL ONE (09:03)
== END 2021-06-04 13:11 | disposition home or self-care (01) ==
LOC: CCL 06:12
PROVIDERS: ATTEND Internal Medicine Cardiovascular Disease
PROC: 4A023N7 Measurement of Cardiac Sampling and Pressure, Left Heart, Percutaneous Approach (ICD-10-PCS; principal; 2021-06-04)
PROC: B2111ZZ Fluoroscopy of Multiple Coronary Arteries using Low Osmolar Contrast (ICD-10-PCS; 2021-06-04)
PROC: B2181ZZ Fluoroscopy of Left Internal Mammary Bypass Graft using Low Osmolar Contrast (ICD-10-PCS; 2021-06-04)
PROC: B2121ZZ Fluoroscopy of Single Coronary Artery Bypass Graft using Low Osmolar Contrast (ICD-10-PCS; 2021-06-04)
DX: I25.5 Ischemic cardiomyopathy (principal); I25.10 Atherosclerotic heart disease of native coronary artery without angina pectoris; I25.82 Chronic total occlusion of coronary artery; I10 Essential (primary) hypertension; E78.5 Hyperlipidemia, unspecified; E11.9 Type 2 diabetes mellitus without complications; Z86.711 Personal history of pulmonary embolism; Z87.891 Personal history of nicotine dependence; Z79.84 Long term (current) use of oral hypoglycemic drugs; Z79.899 Other long term (current) drug therapy; Z95.1 Presence of aortocoronary bypass graft
CPT/HCPCS: 36415; 80061; 93459; 99152; 99153; J2250; J3010; Q9967

== ENCOUNTER 2024-06-10 10:28 | Outpatient (CLI) | payer MEDICARE, BC ==
[2024-06-10 11:37] LABS: #Basophils Less than 0.03 10x3/uL (0.0-0.2); %Basophils 0.3 % (0.0-1.0); %Eosinophils 1.5 % (0.0-10.0); %Lymphocytes 23.9 % (21.0-51.0); %Monocytes 9.6 % (0.0-10.0); %Neutrophils 64.3 % (42.0-75.0); Hematocrit 34.5 % (36.0-47.0); Hemoglobin 11.3 g/dL (12.0-16.0); Mean Corpuscular HGB CONC 32.8 g/dL (32.0-36.0); Mean Corpuscular Hemoglobin 32.6 pg (27.0-31.0); Mean Corpuscular Volume 99.4 fL (78.0-98.0); Mean Platelet Volume 9.5 fL (7.4-10.4); Platelet Count 187 10x3/uL (130-400); Red Blood Cell (RBC) Count 3.47 mill/uL (4.20-5.40)
[2024-06-10 11:52] LABS: ALT (SGPT) 9 U/L (8-55); AST (SGOT) 12 U/L (5-34); Albumin 3.6 g/dL (3.4-4.8); Alkaline Phosphatase 105 U/L (40-110); Anion Gap 10 mmol/L (10-20); BUN (Urea Nitrogen) 12 mg/dL (9.8-20.1); Bilirubin, Direct 0.2 mg/dL (0.1-0.3); Bilirubin, Total 0.5 mg/dL (0.2-1.2); Calc. Creatinine Clearance 0 mL/min (70-130); Calcium 9.6 mg/dL (7.8-10.44); Carbon Dioxide 30 mmol/L (23-31); Chloride 103 mmol/L (98-107); Estimated GFR 86; Globulin 2.8 g/dL (2.4-3.5); Glucose 165 mg/dL (83-110); Potassium 4.1 mmol/L (3.5-5.1); Protein, Total 6.4 g/dL (5.8-8.1); Sodium 139 mmol/L (136-145)
== END 2024-06-10 10:29 | disposition home or self-care (01) ==
LOC: LABBT 10:28
PROVIDERS: ATTEND Internal Medicine Cardiovascular Disease
DX: Z01.812 Encounter for preprocedural laboratory examination (principal); I25.10 Atherosclerotic heart disease of native coronary artery without angina pectoris
CPT/HCPCS: 80053; 80076; 85025

== ENCOUNTER 2024-06-14 05:47 | Day surgery (SDC) | payer MEDICARE ==
[2024-06-10 11:03] VITALS: BMI 31.1
[2024-06-14] MEDS ORDERED: Heparin 10,000 UNITS/ 10 ML VIAL ONE (06:59)
[2024-06-14] MEDS ORDERED: fentaNYL 50 mcg/mL 1 mL Vial ONE ×2 (08:30→11:07)
[2024-06-14] MEDS ORDERED: Midazolam HCl 2 mg/2 ml Vial ONE (08:30)
[2024-06-14] MEDS ORDERED: Iopamidol 370 76% 100 ML VIAL ONE (10:41)
[2024-06-14] MEDS ORDERED: fentaNYL 50 mcg/mL 1 mL Vial SLOW IVP SCH (11:15)
== END 2024-06-14 14:00 | disposition home or self-care (01) ==
LOC: CCL 05:47
PROVIDERS: ATTEND Internal Medicine Cardiovascular Disease
PROC: 4A023N6 Measurement of Cardiac Sampling and Pressure, Right Heart, Percutaneous Approach (ICD-10-PCS; principal; 2024-06-14)
DX: R94.39 Abnormal result of other cardiovascular function study (principal); I10 Essential (primary) hypertension; E78.5 Hyperlipidemia, unspecified; I25.5 Ischemic cardiomyopathy; I26.99 Other pulmonary embolism without acute cor pulmonale; E11.9 Type 2 diabetes mellitus without complications; Z79.899 Other long term (current) drug therapy; Z90.49 Acquired absence of other specified parts of digestive tract; Z98.49 Cataract extraction status, unspecified eye; Z95.1 Presence of aortocoronary bypass graft; Z90.710 Acquired absence of both cervix and uterus; Z98.890 Other specified postprocedural states; Z87.891 Personal history of nicotine dependence
CPT/HCPCS: 75625; 82962; 93459; C1769 ×2; C1887; J2250; J3010; Q9967; 36416; 99152; 99153; J1644